=== PATIENT | female | born 1960 | race Two or more races ===

== ENCOUNTER 2024-11-15 13:53 | Emergency (ER) | payer OTHER ==
[~2024-11-15] VITALS: Ht 154.9 cm; Wt 63.5 kg
[~2024-11-15 13:53] MED LIST: COZAAR50 MG PO; LIPITOR40 MG PO
[2024-11-15] MEDS ORDERED: FENOFIBRATE50 MG PO (14:19)
[2024-11-15] MEDS ORDERED: FAMOTIDINE/PF 20 MG/2 ML VIAL IV PUSH STA (15:24)
[2024-11-15] MEDS ORDERED: FAMOTIDINE/PF 20 MG/2 ML VIAL ONE (15:25)
[2024-11-15 16:02] LABS: BASO % 0.8 % (0.1-1.2); EOS # 0.08 (0.04-0.54); EOS % 1.2 % (0.7-7.0); LYMPH # 2.17 (1.18-3.74); LYMPH % 32.6 % (19.3-53.1); MEAN PLATELET VOLUME 10.20 fl (9.4-12.4); MONO # 0.56 (0.24-0.82); MONO % 8.4 % (4.7-12.5); NEUT # 3.79 (1.56-6.13); NEUT % 56.8 % (34.0-71.1); RED CELL DISTRIBUTION WIDTH 12.5 % (11.6-14.4)
[2024-11-15 16:43] LABS: ALT/SGPT 20.0 U/L (12-78); AST/SGOT 18.0 U/L (15-37); BILIRUBIN TOTAL 0.29 mg/dL (0.3-1.2); BUN CREA RATIO 16.0 (7.0-25.0); CREATININE SERUM 0.94 mg/dL (0.55-1.02); GFR 60.14; GLOBULINA 3.1 G/DL (2.4-3.5); GLUCOSE FASTING 115.0 mg/dL (65-100); OSMOLALITY SERUM 289.0 MOSM/KG (275-295)
[2024-11-15] MEDS ORDERED: PEPCID20 MG PO (19:03)
== END 2024-11-15 19:12 | disposition home or self-care (01) ==
LOC: ER 13:53
PROVIDERS: General Practice
DX: K21.9 Gastro-esophageal reflux disease without esophagitis (principal); R07.89 Other chest pain; Z88.1 Allergy status to other antibiotic agents